=== PATIENT | male | born 1965 | race Caucasian/White ===

== ENCOUNTER 2019-08-19 09:06 | Emergency (ER) | payer OTHER ==
[~2019-08-19] VITALS: Ht 177.8 cm; Wt 108.9 kg
[2019-08-19] MEDS ORDERED: ASA81BEC PO (09:18)
[2019-08-19 09:37] LABS: URINE BILIRUBIN NEGATIVE (Negative); URINE BLOOD 1+ (Negative); URINE CLARITY CLEAR; URINE COLOR YELLOW; URINE GLUCOSE-RANDOM NEGATIVE (Negative); URINE KETONES NEGATIVE (Negative); URINE LEUKOCYTES-REFLEX NEGATIVE (Negative); URINE NITRITE-REFLEX NEGATIVE (Negative); URINE PROTEIN NEGATIVE (Negative); URINE UROBILINOGEN 0.2 E.U./dl (0.2-1.0)
[2019-08-19 09:49] LABS: ABSOLUTE BASOPHILS 0.1 thou/uL (0.0-0.2); ABSOLUTE EOSINOPHILS 0.1 thou/uL (0.0-0.7); ABSOLUTE LYMPHOCYTES 1.7 thou/uL (0.8-5.3); ABSOLUTE MONOCYTES 0.8 thou/uL (0.0-1.2); ABSOLUTE NEUTROPHILS 9.6 thou/uL (1.6-8.1); BASOPHILS 0.6 %; EOSINOPHILS 0.8 %; HEMATOCRIT 47.4 % (42.0-52.0); HEMOGLOBIN 16.1 gm/dL (14.0-18.0); LYMPHOCYTES 13.6 %; MCV 85.2 fL (80.0-100.0); MONOCYTES 6.5 %; NUCLEATED RBCS 0 /100WBC; PLATELET COUNT* 185 thou/uL (150-400); POLYS 78.5 %; RBC 5.56 mil/uL (4.50-6.00); RDW-CV 13.2 % (10.5-14.5); WBC 12.2 thou/uL (4.0-11.0)
[2019-08-19 09:51] LABS: BACTERIA-REFLEX 1-9 Few /HPF (None Seen); CASTS None Seen /LPF (None Seen); CRYSTALS None Seen /LPF (None Seen); MUCUS 0-3 Light strn/LPF (None Seen); SQUAMOUS 0-3 Few /LPF (0-3); URINE RBC 3-10 Few /HPF (0-2); URINE WBC-REFLEX 0-5 Rare /HPF (0-5)
[2019-08-19 09:57] LABS: CALCIUM 8.7 mg/dL (8.5-10.1); CREATININE 0.9 mg/dL (0.6-1.3); POTASSIUM 3.5 mmol/L (3.5-5.1)
[2019-08-19 10:09] LABS: ALBUMIN 3.8 g/dL (3.4-5.0); TOTAL BILIRUBIN 1.9 mg/dL (<0.1-1.0); TOTAL PROTEIN 7.5 g/dL (6.4-8.2)
[2019-08-19] MEDS ORDERED: HYDROCODON-ACE1 EAC7 PO (11:14)
[2019-08-19] MEDS ORDERED: LEVAQUIN 750 M750 MG PO ×2 (11:14→11:16)
[2019-08-19] MEDS ORDERED: FLAGYL500 M1 PO (11:14)
[2019-08-19] MEDS ORDERED: ZOFRAN ODT4 MG PO (11:14)
[2019-08-19] MEDS ORDERED: COLACE 100 MG100 MG PO ×2 (11:26→11:27)
[2019-08-19 11:29] VITALS: BP 166/85
== END 2019-08-19 11:30 | disposition home or self-care (01) ==
LOC: M.ERS 09:06
PROVIDERS: Emergency Medicine
DX: K57.32 Diverticulitis of large intestine without perforation or abscess without bleeding (principal)